=== PATIENT | male | born 1990 | race Caucasian/White ===

== ENCOUNTER 2018-09-04 04:31 | Emergency (ER) | payer MEDICAID ==
[~2018-09-04] VITALS: Ht 170.2 cm; Wt 64.0 kg
[2018-09-04 04:35] VITALS: BP 126/73
--- NOTE | 2018-09-04 04:40 | NUR ---
PT [facility]. PT REPORTS TINGLING/SHARP R SHOULDER PAIN AT 6/10 X1 MONTH. PT STATED THAT HE DISLOCATED R SHOULDER 1 MONTH AGO FALLING OFF A HILL AND THAT HE NEEDS SURGERY TO HAVE IT FIXED. PT REPORTS CERTAIN MOVEMENTS CAUSE HIS SHOULDER TO "POP OUT". NO EDEMA, ERYTHEMA, BRUISING PRESENT ON R SHOULDER. MED HX:NONE RX:NONE
[2018-09-04 05:06] VITALS: BP 126/73
--- NOTE | 2018-09-04 05:07 | NUR ---
Patient discharged with v/s stable. Written and verbal after care instructions given and explained. Patient verbalized understanding. Police with in custody. All questions addressed prior to discharge. Advised to follow up with PMD.
--- NOTE | 2018-09-04 05:07 | NUR ---
PATIENT [facility] POLICE DEPT. PATIENT EXAMINED BY DR. BHATIA. PATIENT MEDICALLY CLEARED AND RELEASED IN CUSTODY IN STABLE CONDITION. ORIGINAL PRE-BOOK FORM GIVEN TO OFFICER MEENU.
== END 2018-09-04 05:06 ==
LOC: MED 04:31
DX: M25.511 Pain in right shoulder (principal); Z88.0 Allergy status to penicillin; Z91.030 Bee allergy status; Z91.012 Allergy to eggs; V89.2XXA Person injured in unspecified motor-vehicle accident, traffic, initial encounter; Y93.I9 Activity, other involving external motion; Y92.488 Other paved roadways as the place of occurrence of the external cause; Y99.8 Other external cause status
CPT/HCPCS: 99283